=== PATIENT | female | born 1950 | race Caucasian/White ===

== ENCOUNTER → 2017-03-09 16:35 | Outpatient (CLI) | payer MEDICARE, OTHER ==
[2015-04-15 12:58] VITALS: BMI 36.4
[~2017-03-09 16:35] MED LIST: CELEBREX200 MG PO; CYCLOBENZAPRINE10 MG PO; GLUCOPHAGE850 MG PO; KLONOPIN1 MG PO; LIPITOR10 MG PO; NEXIUM40 MG PO; PAXIL30 MG PO; PLAVIX75 MG PO; SEROQUEL XR200 MG PO; THEREMS-M1 TAB PO; TRILIPIX135 MG PO; ZOCOR40 MG PO
== END | disposition home or self-care (01) ==
LOC: D.MAMMO 14:15
DX: Z12.31 Encounter for screening mammogram for malignant neoplasm of breast (principal)

== ENCOUNTER → 2017-04-21 22:30 | Outpatient (CLI) | payer MEDICARE, OTHER ==
[2015-04-15 12:58] VITALS: BMI 36.4
== END | disposition home or self-care (01) ==
LOC: D.MAMMO 09:00
DX: R92.2 Inconclusive mammogram (principal)

== ENCOUNTER 2017-09-07 08:27 | Outpatient (CLI) | payer MEDICARE, OTHER ==
--- NOTE | ~2017-09-07 | HEMODYNAMI ---
PATIENT:MARK VERONICA MEDICAL RECORD: [id number] : 50 LOCATION:[facility] ADMISSION DATE: 09/07/17 Generatedon:09/07/20179:58 Patient name: MARK VERONICA Patient #: [id number] SSN : : 1950 Date of study: 09/07/2017 Page: Of Hemodynamic Procedure Report Patient Data Patient Demographics Procedure consent was obtained First Name: MARK Gender: Female Last Name: GLENYS : 1950 Middle Initial: J Age: 67 year(s) Patient #: [id number] Race: Additional ID: [id number] Contact details [address]: [address] [place] [address] [address] State: [place] City: [place] Zip code: [address] Past Medical History Allergies: No known allergies Admission Admission Data Admission Date: 09/07/2017 Admission Time: 8:27 Procedure Procedure Types Cath Procedure Diagnostic Procedure LHC LHC w/Coronaries PCI Procedure Coronary Stent Initial PTCA Additional Miscellaneous Procedures Moderate Sedation up to 15 minutes Peripheral Cath Diagnostic Procedure Cath Peripheral Four Vessel Arteriogram Procedure Description Procedure Date Procedure Date: 09/07/2017 Procedure Start Time: 9:37 Procedure End Time: 9:54 Procedure Staff Name Function Roro Walker RT Scrub Scot Estrella RN Nurse Davin Valerio MD Performing Physician Patsy Cotto RT Monitor Indication Angina Procedure Data Cath Procedure Fluoroscopy Diagnostic fluoroscopy Total fluoroscopy Time: 3.6 time: 3.6 min min Diagnostic fluoroscopy Total fluoroscopy dose: 974 dose: 974 mGy mGy Contrast Material Contrast Material Type Amount (ml) Isovue 300 115 Entry Location Entry Primary Successful Side Size Upsize Upsize Entry Closure Succes sful Closure Location (Fr) 1 (Fr) 2 (Fr) Remarks Device Remarks Femoral Right 5 Fr 6 Fr Exoseal artery Short Estimated blood loss: 10 ml Diagnostic catheters Device Type Used For End Catheter Placement Cordis 5Fr Pigtail Procedure Catheter (MP) Cordis 5Fr JL 4.0 Procedure Catheter (MP) Cordis 5Fr 3DRC Catheter Procedure (MP) Procedure Complications No complications Procedure Medications Medication Administration Route Dosage Oxygen NC 2 l/min Heparin Flush Bag added to field 2 bags (1000units/500ml NS) 0.9% NaCl I.V. 100 ml/hr Fentanyl I.V. 50 mcg Versed I.V. 1 mg Fentanyl I.V. 50 mcg Versed I.V. 1 mg Heparin Bolus I.V. 4000 units Integrilin (Bolus I.V. 9 ml 2mg/ml) Integrilin (Bolus wasted 1 ml 2mg/ml) Plavix P.O. 600 mg Hemodynamics Rest Heart Rate: 73 (bpm) Pressure Samples Time Site Value (mmHg) Purpose Heart Use Rate(bpm) 9:39 LV 100/14,14 Snapshot 80 Snapshots Pre Cath Intra NCS Post Cath Vital Signs Time Heart Resp SPO2 NIBP (mmHg) Rhythm Pain Sedation Rate (ipm) (%) Status Level (bpm) 9:24:32 72 16 96 137/67(102) NSR 0 (11) 10(A) , No pain 9:28:46 74 18 95 132/72(99) NSR 0 (11) 10(A) , No pain 9:33:02 77 18 95 122/73(100) NSR 0 (11) 10(A) , No pain 9:37:20 76 17 95 138/61(85) NSR 0 (11) 10(A) , No pain 9:41:36 82 19 93 133/67(101) NSR 0 (11) 9(A) , No pain 9:45:52 86 18 96 153/78(110) NSR 0 (11) 9(A) , No pain 9:50:13 88 17 96 148/73(93) NSR 0 (11) 9(A) , No pain 9:54:35 85 17 96 160/77(114) NSR 0 (11) 9(A) , No pain Medications Time Medication Route Dose Verified Delivered Reason Notes Effectiveness by by 9:30:11 Oxygen NC 2 Davin Ellison Per physician l/min Teodoro Estrella RN 9:30:36 Heparin Flush added 2 Davin Ellison used for Bag to bags Teodoro Estrella service or work dispatcher chief (1000units/500ml field NS) 9:30:52 0.9% NaCl I.V. 100 Davin Ellison Per physician ml/hr Teodoro Estrella RN 9:35:25 Fentanyl I.V. 50 Davin Scot for sedation mcg Teodoro Estrella RN 9:37:13 Versed I.V. 1 mg Davin Cadety for sedation Teodoro Estrella RN 9:47:07 Fentanyl I.V. 50 Davin Cadety for sedation mcg Teodoro Estrella RN 9:47:11 Versed I.V. 1 mg Davin Ellison for sedation Teodoro Estrella RN 9:47:21 Heparin Bolus I.V. 4000 Davin Ellison for units Teodoro Estrella RN anticoagulation 9:47:33 Integrilin I.V. 9 ml Davin Ellison for (Bolus 2mg/ml) Teodoro Estrella RN antiplatelet therapy 9:47:40 Integrilin wasted 1 ml Davin Ellison for (Bolus 2mg/ml) Teodoro Estrella RN antiplatelet therapy 9:55:19 Plavix P.O. 600 Davin Ellison for mg Teodoro Estrella RN antiplatelet therapy Procedure Log Time Note 9:00:46 Scot Estrella RN sent for patient. Start room use. 9:10:24 Diagnostic Cath Status : Elective 9:10:42 Indication : Angina 9:10:52 Time tracking: Regular hours 9:10:57 Plan of Care:Hemodynamics will remain stable., Cardiac rhythm will remain stable., Comfort level will be maintained., Respiratory function will remain adequate., Patient/ family verbilizes understanding of procedure., Procedure tolerated without complication., Recovers from procedure without complications.. 9:11:02 Patient received from Pre/Post Procedure Room to CCL 2 Alert and oriented. Tansferred to table in Supine position. 9:11:04 Correct patient and procedure confirmed by team. 9:11:04 Warm blankets applied, and margot hugger turned on for patient comfort. 9:11:05 Signed procedure consent form obtained from patient. 9:11:07 ECG and BP/O2 sat monitors applied to patient. 9:23:22 Vital chart was started 9:23:23 Baseline sample Acquired. 9:23:28 Rhythm: sinus rhythm 9:23:29 Full Disclosure recording started 9:23:37 H&P Date Dictated: 09/06/2017 Within 30 days and on chart., H&P Addendum completed by physician on day of procedure. (MUST COMPLETE FOR ALL OUTPATIENTS). 9:24:16 Pre-procedure instructions explained to patient. 9:24:18 Family in waiting room. 9:24:20 Patient NPO since Midnight. 9:24:28 Patient allergic to No known allergies 9:24:32 Is the patient allergic to Iodine/contrast media? No. 9:24:34 Was the patient premedicated? Yes 9:24:37 Is patient on blood thinner?Yes 9:24:50 ACC The patient was administered the following blood thiners within the last 24 hours: Eliquis 9:24:55 Patient diabetic? No. 9:24:57 Snore? Yes 9:24:58 Sleep apnea? Yes 9:25:10 Dentures? Yes in tight 9:25:15 Patient pain scale 0/10 ?. 9:25:31 IV patent on arrival in left forearm with 0.9% NaCl at KVO. 9:30:11 Oxygen 2 l/min NC was administered by Scot Estrella RN; Per physician; 9:30:36 Heparin Flush Bag (1000units/500ml NS) 2 bags added to field was administered by Scot Estrella RN; used for procedure; 9:30:52 0.9% NaCl 100 ml/hr I.V. was administered by Scot Estrella RN; Per physician; 9:34:59 Physician arrived 9:35:00 --------ALL STOP TIME OUT------ 9:35:11 Final Timeout: patient, procedure, and site verified with staff and physician. All members of the team are in agreement. 9:35:13 Right groin site verified by team. 9:35:18 Sedation plan: IV Moderate Sedation Versed, Fentanyl 9:35:25 Fentanyl 50 mcg I.V. was administered by Scot Estrella RN; for sedation; 9:36:16 Lab results completed and on chart. 9:36:20 Right groin area was prepped with chlora-prep and draped in sterile fashion 9:36:21 Sharps counted by scrub and verified by R.N. 9:36:21 Alarms reviewed by R. N. 9:36:53 Procedure started. 9:37:02 Local anesthetic to right femoral artery with Lidocaine 2% by Davin Valerio MD.INITIAL ACCESS ONLY 9:37:13 Versed 1 mg I.V. was administered by Scot Estrella RN; for sedation; 9:37:36 Use device set Femoral Dx 9:37:37 Acist Syringe opened to sterile field. 9:37:38 Medline Cath Pack opened to sterile field. 9:37:38 Bag Decanter opened to sterile field. 9:37:39 St Uzair 260cm J .035 wire opened to sterile field. 9:37:39 Terumo 5Fr Rodman Sheath opened to sterile field. 9:37:40 Acist Hand Control opened to sterile field. 9:37:41 Tegaderm 4 x 4 opened to sterile field. 9:37:41 Diagnostic Infinity 5Fr Multipack catheter opened to sterile field. 9:37:41 Acist Manifold opened to sterile field. 9:37:53 A 5 Fr sheath was inserted into the Right Femoral artery 9:38:02 Zero performed for pressure channel P1 9:39:22 A Cordis 5Fr Pigtail Catheter (MP) was advanced over the wire and used for Procedure. 9:39:29 LV angiography performed. 9:40:04 EF : 60 % 9:40:09 Catheter removed. 9:40:16 A Cordis 5Fr JL 4.0 Catheter (MP) was advanced over the wire and used for Procedure. 9:40:19 LCA angiography performed. 9:41:33 Catheter removed. 9:41:56 A Cordis 5Fr 3DRC Catheter (MP) was advanced over the wire and used for Procedure. 9:42:42 RCA angiography performed. 9:43:09 Left carotid angiography performed. 9:44:17 Right carotid angiography performed. 9:44:38 Catheter removed. 9:45:15 Velazquez Whisper J 300cm 0.014 guide wire opened to sterile field. 9:45:16 Sonian BasixCompak Inflation Kit opened to sterile field. 9:45:16 Cordis 6FR XBLAD 3.5 guide catheter opened to sterile field. 9:45:17 Terumo 6Fr Rodman Sheath opened to sterile field. 9:45:28 Sheath upsized to a 6 Fr Short. 9:45:38 6 Fr XBLAD 3.5 guide catheter was inserted over the wire 9:45:43 whisper wire advanced. 9:47:07 Fentanyl 50 mcg I.V. was administered by Scot Estrella RN; for sedation; 9:47:11 Versed 1 mg I.V. was administered by Scot Estrella RN; for sedation; 9:47:16 Wire advanced across lesion. 9:47:21 Heparin Bolus 4000 units I.V. was administered by Scot Estrella RN; for anticoagulation; 9:47:33 Integrilin (Bolus 2mg/ml) 9 ml I.V. was administered by Scot Estrella RN; for antiplatelet therapy; 9:47:40 Integrilin (Bolus 2mg/ml) 1 ml wasted was administered by Scot Estrella RN; for antiplatelet therapy; 9:48:36 Inflation Number: 1 A Informativetronic Integrity 2.5 X 8 stent was prepped and advanced across the 1st Diag. The stent was deployed at 11 DENICE for 0:10 (min:sec). 9:48:46 Wire redirected to LAD. 9:48:52 Stent balloon re-inserted over wire. 9:49:41 Inflation number: 1 The stent balloon was then re-inflated across the Mid LAD to 15 DENICE for 0:10 (min:sec). 9:49:49 Stent catheter was removed intact over wire. 9:49:50 Wire removed. 9:49:51 Guide catheter removed. 9:50:22 Cordis 6Fr Exoseal opened to sterile field. 9:50:40 Sheath removed intact; hemostasis achieved with Exoseal to the Right Femoral artery. 9:50:44 Procedure ended.(Physican Out) 9:50:55 Fluoroscopy time 03.60 minutes. 9:51:00 Fluoroscopy dose: 974 mGy 9:51:00 Flurop Dose total: 974 9:51:04 Contrast amount:Isovue 300 115ml. 9:51:06 Sharps counted by scrub and verified by R.N. 9:51:10 Insertion/operative site no bleeding no hematoma. 9:51:15 Post right femoral artery:stable 9:51:18 Post Procedure Pulses reassessed and unchanged 9:51:22 Post-procedure physical assessment completed. ASA score P 2 - A patient with mild systemic disease as per Davin Valerio MD. 9:51:27 Post procedure rhythm: unchanged. 9:51:29 Estimated blood loss: 10 ml 9:51:30 Post procedure instruction explained to patient.Patient verbalizes understanding. 9:53:04 Procedure type changed to Cath procedure, Diagnostic procedure, LHC, LHC w/Coronaries, PCI procedure, Coronary Stent Initial, PTCA Additional, Miscellaneous Procedures, Moderate Sedation up to 15 minutes, Peripheral Cath Diagnostic Procedure, Cath Peripheral, Four Vessel Arteriogram 9:53:06 Procedure and supply charges have been captured, reviewed, submitted and are correct. 9:54:03 Procedure Complication : No complications 9:54:05 Vital chart was stopped 9:54:06 See physician's report for complete and final results. 9:54:07 Report given to Pre/Post Procedure Room. 9:54:11 Patient transfered to Pre/Post Procedure Room with Stretcher. 9:54:13 Full Disclosure recording stopped 9:54:13 Procedure ended. 9:54:17 End room use (Document Last) 9:54:28 ACC-PCI Only Patient was given prescriptions, or instructed by Davin Valerio MD to start/continue the following medications upon discharge: Plavix 9:55:19 Plavix 600 mg P.O. was administered by cSot Estrella RN; for antiplatelet therapy; Intervention Summary Intervention Notes Time ActionType Lesion and Equipment Action# Pressure Duration Attributes Used 9:48:36 Place stent 1st Diag Medtronic 1 11 00:10 Integrity 2.5 X 8 stent 9:49:41 Reinflate Mid LAD Medtronic 1 15 00:10 stent Integrity balloon 2.5 X 8 stent Device Usage Item Name Manufacture Quantity Catalog Hospital Part Current Minimal L ot# / Number Charge Number Stock Stock Serial# Code Acist Acist 1 [id number] [id number] [id number] 20 Syringe Medical [employer] Inc Bag Microtek 1 [id number] 99935 154078 5 DecValderm Medical Inc. Medline Cardinal 1 [id number] 363851 86685 619003 5 Cath Pack Eko USA Terumo 5Fr Terumo 1 [id number] 012527 122386 183616 [address] Uz[address] St Uzair 1 [id number] 349806 166589 902788 30 260cm J .035 wire Acist Hand Acist 1 10618 983433 505173 006710 5 Control Medical Systems Inc Acist Acist 1 68965 254267 059481 015249 5 ComVibe Medical Systems Inc Diagnostic Cardinal 1 [id number] 942062 16454 311662 30 Infinity Health 5Fr Multipack catheter Tegaderm 4 3M 1 [id number] 451471 766217 973670 5 x 4 Cordis 5Fr Cardinal 1 823753 5 Pigtail Health Catheter (MP) Cordis 5Fr Cardinal 1 318696 5 JL 4.0 Health Catheter (MP) Cordis 5Fr Cardinal 1 712712 5 3DRC Health Catheter (MP) Velazquez Velazquez 1 [id number] 693315 729844 247597 5 Whisper J Vascular 300cm 0.014 guide wire Cordis 6FR Cardinal 1 [id number] 070406 341307 698464 10 XBLAD 3.5 Health guide catheter [facility] 1 [id number] 658874 903486 210874 15 OVGuide Medical Inflation Kit Terumo 6Fr Terumo 1 [id number] 470924 953085 514531 40 Rodman Sheath Medtronic Medtronic 1 [id number] 408036 374063 1 0 [id number] Integrity 2.5 X 8 stent Cordis 6Fr Cardinal 1 [id number] 403501 235341 706572 10 [facility] Eko USA Signature Audit [place] Stage Time Signature Unsigned Intra-Procedure 09/07/2017 Patsy Cotto 9:58:49 AM RT(R) Signatures Monitor : Patsy Cotto Signature : RT Date : Time : [id number] [place] [address]
[2017-09-07] MEDS ORDERED: LOPID600 MG PO (08:43)
[2017-09-07] MEDS ORDERED: BETAPACE 80 MG80 MG PO (08:43)
[2017-09-07] MEDS ORDERED: ZANTAC150 MG PO (08:44)
[2017-09-07] MEDS ORDERED: SEROQUEL200 MG PO (08:44)
[2017-09-07] MEDS ORDERED: ELIQUIS5 MG PO (08:45)
[2017-09-07 08:49] VITALS: BP 137/71; BMI 35.2
[2017-09-07 09:05] LABS: BASOPHILS 0.7 % (0-2); EOSINOPHILS 3.2 % (0-7); HEMATOCRIT 42.2 % (36.0-48.0); HEMOGLOBIN 14.3 g/dL (12-16); IMMATURE GRANULOCYTES 0.2 % (0-5); LYMPHOCYTES 35.3 % (15-50); MCH 29.9 pg (26.0-34.0); MCHC 33.9 g/dL (31.0-37.0); MCV 88.3 fL (80.0-100.0); MONOCYTES 7.3 % (2-11); NEUTROPHILS 53.3 % (40-80); PLATELET COUNT 255 10x3/uL (130-400); RBC 4.78 10x6/uL (4.00-5.40); RDW 13.4 % (11.5-14.5); WBC 9.6 10x3/uL (4.8-10.8)
[2017-09-07 09:19] LABS: CALC OSMOLALITY 272 mosm/kg (275-300); CALCIUM 9.1 mg/dL (8.5-10.1); CARBON DIOXIDE 25.7 mmol/L (21.0-32.0); CHLORIDE - SERUM 102 mmol/L (98-107); CREATININE - SERUM 0.8 mg/dL (0.6-1.3); GLUCOSE 131 mg/dL (74-106); SODIUM 136 mmol/L (136-145); UREA NITROGEN 9 mg/dL (7-18); eGFR NON AFRICAN AMERICAN 76 mL/min (90-120)
[2017-09-07] MEDS ORDERED: PLAVIX75 MG PO (10:14)
--- NOTE | 2017-09-07 10:20 | NUR ---
2L NC, NO RESP DISTRESS NOTED. RIGHT GROIN 6F EXOSEAL CDI, NO BLEEDIGN OR HEMATOMA NOTED. NO C/O NAUSEA OR CHEST PAIN. VSS. CALL LIGHT WITHIN REACH.
--- NOTE | 2017-09-07 10:50 | NUR ---
SANDWICH TRAY AND DRINK GIVEN. NO C/O NAUSEA OR PAIN. RIGHT GROIN 6F EXOSEAL CDI, NO BLEEDING OR HEMATOMA NOTED. 2L NC, NO RESP DISTRESS. VSS. FAMILY AT BEDSIDE, CALL LIGHT WITHIN REACH.
--- NOTE | 2017-09-07 11:05 | NUR ---
RESTING QUIETLY WITH EYES CLOSED. 2L NC, NO RESP DISTRESS. RIGHT GROIN 6F EXOSEAL CDI, NO BLEEDING OR HEMATOMA NOTED. NO C/O PAIN OR NAUSEA AT THIS TIME. VSS. WILL CONTINUE TO MONITOR.
--- NOTE | 2017-09-07 11:30 | NUR ---
RESTING QUEITLY WITH VSS NO DISTRESS NOTED
--- NOTE | 2017-09-07 12:29 | NUR ---
6 FR EXOSEAL R/GROIN CDI NO BLEEDING NO HEMATOMA NOTED. CHEST PAIN DENIED WITH VSS
--- NOTE | 2017-09-07 13:25 | NUR ---
HOB ELEVATED 30 DEGREES. RIGHT GROIN 6F EXOSEAL CDI, NO BLEEDING OR HEMATOMA NOTED.
--- NOTE | 2017-09-07 13:44 | NUR ---
LEFT WRIST PIV D/C'D WITH CATHETER INTACT, BAND AID TO SITE. UP TO BEDSIDE TO GET DRESSED.
--- NOTE | 2017-09-07 13:51 | NUR ---
DISCHARGE INSTRUCTIONS GIVEN, VERBALIZED UNDERSTANDING. UP TO RESTROOM TO VOID.
--- NOTE | 2017-09-07 14:01 | NUR ---
TAKEN OUT VIA WHEELCHAIR BY CATH CARGO ROUTER. LEFT FACILITY WITH FAMILY MEMBER AND ALL PERSONAL BELONGINGS.
--- NOTE | 2017-09-23 16:56 | OP ---
PATIENT NAME: MARK VERONICA MEDICAL RECORD: [id number] :50 LOCATION:D.CAT ADMISSION DATE: SURGEON: INGRDI WALDEN MD DATE OF OPERATION: 09/07/2017 PROCEDURE: Four-vessel carotid and vertebral angiography. INDICATIONS: Recurrent syncope, carotid vascular disease. DESCRIPTION OF PROCEDURE: After informed consent was obtained and after detailed explanation of risks, benefits as well as alternative therapies, the patient elected to proceed with angiogram. The right femoral area had a preexisting sheath from cardiac intervention. All catheters exchanged through this sheath. FINDINGS: There was subselection of each subclavian as well as the left carotid right side. The common internal and external carotids have mild plaquing, none greater than 20%, no flow-limiting stenosis. Vertebral artery has no significant disease. LEFT SYSTEM: The common internal and external carotids have mild plaquing, none greater than 20%, no flow-limiting stenosis. Vertebral artery has no significant disease. OVERALL IMPRESSION: No significant carotid vascular disease is present. Syncope is not secondary to carotid vascular insufficiency. TRANSINT:[id number] Voice Confirmation ID: [id number] DOCUMENT ID: [id number] INGRID WALDEN MD at 1656 CC: [id number] DICTATION DATE: 09/07/17 0957 SR. PAYROLL MANAGER: 09/07/17 1031 DEP CLI 09/07/17 [facility] [address] [place] [address]
--- NOTE | 2017-09-23 16:56 | OP ---
PATIENT NAME: MARK VERONICA MEDICAL RECORD: [id number] :50 LOCATION:D.CAT ADMISSION DATE: SURGEON: INGRID WALDEN MD DATE OF OPERATION: 09/07/2017 PROCEDURES: 1. PTCA stent to LAD diagonal 2. PTCA to LAD. 3. Left heart catheterization. 4. Selective coronary angiography. 5. Left ventriculogram. INDICATION: Angina and coronary artery disease. PROCEDURE IN DETAIL: After informed consent was obtained and after detailed explanation of risks, benefits as well as alternative therapies, the patient elected to proceed with angiogram and angioplasty. The right femoral area was prepped and draped in normal sterile fashion. The right femoral artery was cannulated via modified Seldinger technique with placement of 6-Slovenian sheath. All catheters exchanged through this sheath. FINDINGS: The left ventriculogram was performed in standard 30-degree GONZALEZ view, reveals good cardiac wall motion throughout all segments. Overall ejection fraction estimated 60%. SELECTIVE CORONARY ANGIOGRAPHY: 1. Left main is with no significant angiographic disease. 2. Left anterior descending has previously placed stents in the LAD and LAD diagonal. The diagonal has 75% stenosis after the previously placed stents. The LAD has 70% in-stent restenosis. 3. The left circumflex has moderate irregularities, but no flow-limiting stenosis. 4. Right coronary has a large PDA that has 80% stenosis at the ostium. PTCA STENT OF THE LAD DIAGONAL: The stent used was a 2.5 x 8 mm Integrity stent. The stent balloon was used for the LAD at each inflation at 15 atmospheres. The result was 0% residual throughout. OVERALL IMPRESSION: Successful percutaneous transluminal coronary angioplasty stent of the left anterior descending diagonal and percutaneous transluminal coronary angioplasty of the left anterior descending going from 70% to 75% initial stenosis to 0% residual stenosis. TRANSINT:[id number] Voice Confirmation ID: [id number] DOCUMENT ID: [id number] INGRID WALDEN MD at 1656 CC: [id number] DICTATION DATE: 09/07/17 0957 FOUNDRY HAND: 09/07/17 1031 DEP CLI 09/07/17 [place] [address]
== END 2017-09-07 14:00 | disposition home or self-care (01) ==
LOC: D.CATH 08:27
PROVIDERS: Internal Medicine Interventional Cardiology
DX: I25.119 Atherosclerotic heart disease of native coronary artery with unspecified angina pectoris (principal); T82.855A Stenosis of coronary artery stent, initial encounter; R55 Syncope and collapse; Z01.812 Encounter for preprocedural laboratory examination

== ENCOUNTER 2017-09-09 08:06 | Outpatient (CLI) | payer MEDICARE, OTHER ==
--- NOTE | ~2017-09-09 | HEMODYNAMI ---
PATIENT:MARK VERONICA MEDICAL RECORD: [id number] : 50 LOCATION:DJenniCAT ADMISSION DATE: 09/09/17 Generatedon:09/09/201711:35 Patient name: MARK VERONICA Patient #: [id number] SSN : : 1950 Date of study: 09/09/2017 Page: Of Hemodynamic Procedure Report Patient Data Patient Demographics Procedure consent was obtained First Name: MARK Gender: Female Last Name: GLENYS : 1950 Middle Initial: J Age: 67 year(s) Patient #: [id number] Race: Additional ID: [id number] Contact details [address]: [address] [place] [address] [place] State: [place] City: [place] Zip code: [address] Past Medical History Allergies: No allergy information Admission Admission Data Admission Date: 09/09/2017 Admission Time: 8:06 Procedure Procedure Types Cath Procedure PCI Procedure Coronary Stent Initial Miscellaneous Procedures Moderate Sedation up to 15 minutes Procedure Description Procedure Date Procedure Date: 09/09/2017 Procedure Start Time: 11:24 Procedure End Time: 11:32 Procedure Staff Name Function Davin Valerio MD Performing Physician Roro Walker RT Scrub Scot Estrella RN Nurse Patsy Cotto RT Monitor Procedure Data Cath Procedure Fluoroscopy Diagnostic fluoroscopy Total fluoroscopy Time: 0 time: 0 min min Diagnostic fluoroscopy Total fluoroscopy dose: 1.7 dose: 1.7 mGy mGy Contrast Material Contrast Material Type Amount (ml) Isovue 300 43 Entry Location Entry Primary Successful Side Size Upsize Upsize Entry Closure Succes sful Closure Location (Fr) 1 (Fr) 2 (Fr) Remarks Device Remarks Femoral Left 6 Fr Exoseal artery Short Estimated blood loss: 10 ml Procedure Complications No complications Procedure Medications Medication Administration Route Dosage Oxygen NC 2 l/min Heparin Flush Bag added to field 2 bags (1000units/500ml NS) 0.9% NaCl I.V. 100 ml/hr Fentanyl I.V. 50 mcg Versed I.V. 1 mg Heparin Bolus I.V. 4000 units Fentanyl I.V. 50 mcg Versed I.V. 1 mg Hemodynamics Rest Heart Rate: 65 (bpm) Snapshots Pre Cath Intra NCS Post Cath Vital Signs Time Heart Resp SPO2 etCO2 NIBP (mmHg) Rhythm Pain Sedation Rate (ipm) (%) (mmHg) Status Level (bpm) 11:19:21 63 19 98 0 151/75(113) NSR 0 (11) 10(A) , No pain 11:23:55 64 17 95 0 148/72(116) NSR 0 (11) 10(A) , No pain 11:28:21 72 16 95 0 130/74(112) NSR 0 (11) 9(A) , No pain 11:32:48 71 16 96 0 134/72(100) NSR 0 (11) 9(A) , No pain Medications Time Medication Route Dose Verified Delivered Reason Notes Effectiveness by by 11:19:11 Oxygen NC 2 Davin Cadety Per physician l/min Teodoro Estrella RN 11:19:20 Heparin Flush added 2 Davin Cadety used for Bag to bags Teodoro Estrella RN procedure (1000units/500ml field NS) 11:19:30 0.9% NaCl I.V. 100 Davin Scot Per physician ml/hr Teodoro Estrella RN 11:23:16 Fentanyl I.V. 50 Davin Scot for sedation mcg Teodoro Estrella RN 11:23:23 Versed I.V. 1 mg Davin Scot for sedation Teodoro Estrella RN 11:26:26 Heparin Bolus I.V. 4000 Davin Ellison for units Teodoro Estrella RN anticoagulation 11:26:54 Fentanyl I.V. 50 Davin Scot for sedation mcg Teodoro Estrella RN 11:26:58 Versed I.V. 1 mg Davin Scot for sedation Teodoro Estrella RN Procedure Log Time Note 10:50:49 Time tracking: Regular hours 10:58:45 Diagnostic Cath status Elective 10:58:47 Roro Walker RT(R) sent for patient. Start room use. 10:58:55 Plan of Care:Hemodynamics will remain stable., Cardiac rhythm will remain stable., Comfort level will be maintained., Respiratory function will remain adequate., Patient/ family verbilizes understanding of procedure., Procedure tolerated without complication., Recovers from procedure without complications.. 11:06:04 Patient received from Pre/Post Procedure Room to CCL 3 Alert and oriented. Tansferred to table in Supine position. 11:06:05 Warm blankets applied, and margot hugger turned on for patient comfort. 11:06:06 Correct patient and procedure confirmed by team. 11:06:07 Signed procedure consent form obtained from patient. 11:06:12 ECG and BP/O2 sat monitors applied to patient. 11:14:14 H&P Date Dictated: 09/09/2017 Within 30 days and on chart., H&P Addendu m completed by physician on day of procedure. (MUST COMPLETE FOR ALL OUTPATIENTS). 11:14:16 Pre-procedure instructions explained to patient. 11:14:17 Family in waiting room. 11:14:19 Patient NPO since Dinner. 11:14:33 Patient allergic to No allergy information 11:14:36 Was the patient premedicated? Yes 11:14:38 Is patient on blood thinner?Yes 11:14:41 ACC The patient was administered the following blood thiners within the last 24 hours: ACCPlavix 11:14:59 Patient diabetic? No. 11:15:03 Snore? No 11:15:04 Sleep apnea? No 11:15:20 Dentures? Yes in tight 11:15:27 Patient pain scale 0/10 ?. 11:15:32 IV patent on arrival in left hand with 0.9% NaCl at KVO. 11:15:39 Lab results completed and on chart. 11:15:43 Left groin area was prepped with chlora-prep and draped in sterile fashion 11:15:44 Alarms reviewed by R. N. 11:15:45 Sharps counted by scrub and verified by R.N. 11:15:47 - 11:15:49 Physician paged 11:17:52 Vital chart was started 11:19:11 Oxygen 2 l/min NC was administered by Scot Estrella RN; Per physician; 11:19:20 Heparin Flush Bag (1000units/500ml NS) 2 bags added to field was administered by Scot Estrella RN; used for procedure; 11:19:30 0.9% NaCl 100 ml/hr I.V. was administered by Scot Estrella RN; Per physician; 11:19:39 Baseline sample Acquired. 11:19:44 Full Disclosure recording started 11:20:25 Medtronic Launcher 6Fr AR 2.0 guide catheter opened to sterile field. 11:20:39 Use device set Femoral PCI 11:20:40 Acist Syringe opened to sterile field. 11:20:41 Acist Hand Control opened to sterile field. 11:20:41 Bag Decanter opened to sterile field. 11:20:41 Medline Cath Pack opened to sterile field. 11:20:42 Terumo 6Fr Bainbridge Sheath opened to sterile field. 11:20:43 St Uzair 260cm J .035 wire opened to sterile field. 11:20:43 Merit BasixCompak Inflation Kit opened to sterile field. 11:20:44 Acist Manifold opened to sterile field. 11:20:44 Tegaderm 4 x 4 opened to sterile field. 11:20:56 Velazquez Whisper J 300cm 0.014 guide wire opened to sterile field. 11:21:48 Physician arrived 11:21:49 --------ALL STOP TIME OUT------ 11:21:50 Final Timeout: patient, procedure, and site verified with staff and physician. All members of the team are in agreement. 11:21:52 Left groin site verified by team. 11:21:57 Sedation plan: IV Moderate Sedation Versed, Fentanyl 11:23:16 Fentanyl 50 mcg I.V. was administered by Scot Estrella RN; for sedation ; 11::23 Versed 1 mg I.V. was administered by Scot Estrella RN; for sedation; 11::55 Zero performed for pressure channel P1 11:24:04 Procedure started. 11:24:16 Local anesthetic to left femerol artery with Lidocaine 2% by Davin Valerio MD.INITIAL ACCESS ONLY 11:24:27 A 6 Fr Short sheath was inserted into the Left Femoral artery 11:24:48 6 Fr AR2 guide catheter was inserted over the wire 11::55 angiogram of left illiac because wire would not pass. 11::00 whisper wire advanced. 11:: Heparin Bolus 4000 units I.V. was administered by Scot Estrella RN; for anticoagulation; 11::45 Wire advanced across lesion. 11::54 Fentanyl 50 mcg I.V. was administered by Scot Estrella RN; for sedation ; ::58 Versed 1 mg I.V. was administered by Scot Estrella RN; for sedation; 11::17 Inflation Number: 1 A IAMINTOITtronic Integrity 2.75 X 12 stent was prepped and advanced across the R PDA. The stent was deployed at 13 DENICE for 0:07 (min:sec). 11::53 Stent catheter was removed intact over wire. 11::54 Wire removed. 11::55 Guide catheter removed. 11:30:01 Cordis 6Fr Exoseal opened to sterile field. 11:30:37 Contrast amount:Isovue 300 43ml. 11::57 Sheath removed intact; hemostasis achieved with Exoseal to the Left Femoral artery. 11:31:03 Procedure ended.(Physican Out) 11:31:16 Fluoroscopy time 00.00 minutes. ::28 Flurop Dose total: 1.7 11:: Fluoroscopy dose: 1.7 mGy 11::45 Insertion/operative site no bleeding no hematoma. 11:31:49 Post-op/insertion site Left Femoral artery dressed using a 4 x 4 and Tegaderm. 11:31:53 Post left femerol artery:stable 11::55 Post Procedure Pulses reassessed and unchanged 11::58 Post-procedure physical assessment completed. ASA score P 2 - A patient with mild systemic disease as per Davin Valerio MD. 11:32:03 Post procedure rhythm: unchanged. 11:32:05 Estimated blood loss: 10 ml 11:32:07 Post procedure instruction explained to patient.Patient verbalizes understanding. 11:32:23 Procedure and supply charges have been captured, reviewed, submitted an d are correct. 11:32:28 Procedure Complication : No complications 11:32:31 Vital chart was stopped 11:32:31 See physician's report for complete and final results. 11:32:37 Report given to Pre/Post Procedure Room. 11:32:46 Patient transfered to Pre/Post Procedure Room with Stretcher. 11:32:49 Procedure ended. 11:32:49 Full Disclosure recording stopped 11:34:47 End room use (Document Last) Intervention Summary Intervention Notes Time ActionType Lesion and Equipment Action# Pressure Duration Attributes Used 11:29:17 Place stent R PDA Medtronic 1 13 00:07 Integrity 2.75 X 12 stent Device Usage Item Name Manufacture Quantity Catalog Hospital Part Current Minimal L ot# / Number Charge Number Stock Stock Serial# Code Medtronic Medtronic 1 [id number] [id number] 1 Launcher 6Fr AR 2.0 guide catheter Acist Acist 1 67437 201906 216631 032959 20 Syringe Medical Systems Inc Acist Hand Acist 1 48535 500621 801943 945584 5 Cloud Imperium Games [employer] Inc Bag Microtek 1 2002S 501799 93422 795006 5 DecLlesiant Medical Inc. Medline Cardinal 1 [id number] 410008 49175 094265 5 Cath Pack Health Terumo 6Fr Terumo 1 [id number] 328067 492266 868399 [address] Uzair 1 398344 952005 109538 853935 30 260cm J .035 wire Merit Merit 1 ST7007 837611 793042 230979 15 BasixEvents Core Medical Inflation Kit Acist Acist 1 78773 603860 272264 309403 5 Manifold Medical Systems Inc Tegaderm 4 3M 1 1626W 225349 652028 485613 5 x 4 Velazquez Velazquez 1 [id number] 034344 798200 677587 5 Whisper J Vascular 300cm 0.014 guide wire Medtronic Medtronic 1 [id number] 572819 831513 1 0 [id number] Integrity 2.75 X 12 stent Cordis 6Fr Cardinal 1 EX600 437983 556614 419159 10 [email or web address] Signature Audit [place] Stage Time Signature Unsigned Intra-Procedure 09/09/2017 Patsy Cotto 11:35:22 AM RT(R) Signatures Monitor : Patsy Cotto Signature : RT Date : Time : [facility] [address] [place] [address]
[~2017-09-09 08:06] MED LIST changes: +BETAPACE 80 MG80 MG PO; +ELIQUIS5 MG PO; +LOPID600 MG PO; +SEROQUEL200 MG PO; +ZANTAC150 MG PO
[2017-09-09 09:06] LABS: BASOPHILS 0.5 % (0-2); EOSINOPHILS 4.4 % (0-7); HEMATOCRIT 40.6 % (36.0-48.0); HEMOGLOBIN 13.8 g/dL (12-16); IMMATURE GRANULOCYTES 0.3 % (0-5); LYMPHOCYTES 26.5 % (15-50); MCH 29.6 pg (26.0-34.0); MCV 87.1 fL (80.0-100.0); MEAN PLATELET VOLUME 9.9 fL (7.4-10.4); MONOCYTES 7.3 % (2-11); PLATELET COUNT 218 10x3/uL (130-400); RBC 4.66 10x6/uL (4.00-5.40); RDW 13.4 % (11.5-14.5); WBC 10.6 10x3/uL (4.8-10.8)
[2017-09-09 09:08] VITALS: BP 150/80; BMI 35.2
[2017-09-09 09:12] LABS: ANION GAP 14.1 mmol/L (8-16); CALCIUM 9.2 mg/dL (8.5-10.1); CARBON DIOXIDE 25.9 mmol/L (21.0-32.0)
--- NOTE | 2017-09-09 13:32 | NUR ---
1200 PATIENT LYING FLAT, ROOM AIR W NO DISTRESS. NSR RATE 71 WNO C/O CHEST PAIN. PULSES PALP X 4. L GROIN 6F EXOSEAL C/D/I W NO HEMATOMA OR BLEEDING. 1230 RESTING WITH EYES CLOSED. ALL VITALS WNL. L GROIN REMAINS C/D/I. DENIES NEEDS AT THIS TIME. 1330 L GROIN REMAINS C/D/I. FAMILY AT BEDSIDE.
--- NOTE | 2017-09-09 13:54 | NUR ---
RESTING QUIETLY WITH EYES CLOSED. L/GROIN CDI NO BLEEDING NO HEMATOMA NOTED. VSS WITH FAMILY AT SIDE
--- NOTE | 2017-09-09 14:25 | NUR ---
L/GROIN CDI NO DISTRESS NOTED VSS WILL MONITOR
--- NOTE | 2017-09-09 14:47 | NUR ---
REPOSITIONED TO SITTING WITH HOB UP 30 DEGREES CHEST PAIN IS DENIED. 6 FR EXOSEAL L/GROIN REMAINS CDI NO BLEEDING NO HEMATOMA NOTED.
--- NOTE | 2017-09-09 15:18 | NUR ---
PIV REMOVED WITH DRESSING APPLIED. L/GROIN CDI NO BLEEDING NOTED. CHEST PAIN IS DENIED. PATIENT UP TO GET DRESSED FOR DISCHARGE HOME NO DISTRESS NOTED
--- NOTE | 2017-09-09 15:23 | NUR ---
WHEELED OUT VIA WHEELCHAIR BY CATH TEAM.
--- NOTE | 2017-09-23 16:56 | HP ---
PATIENT: MARK VERONICA MEDICAL RECORD: [id number] ACCOUNT: [id number] LOCATION:SHENG : 50 ADMISSION DATE: 09/09/17 HISTORY AND PHYSICAL EXAMINATION ADMITTING DIAGNOSES: 1. Angina. 2. Coronary artery disease. 3. Recent percutaneous transluminal coronary angioplasty stent of the left anterior descending with concomitant disease of the right coronary artery. 4. Hypertension. 5. Hyperlipidemia. HISTORY OF PRESENT ILLNESS: Mrs. Veronica presents with anginal symptomatology, found to have 2-vessel coronary artery disease of the LAD and RCA, underwent successful PTCA stent of the LAD, is now brought back for PTCA stent of the RCA. PHYSICAL EXAMINATION: GENERAL APPEARANCE: Well-nourished, well-developed, appears stated age. Level of distress, comfortable. PSYCHIATRIC: Mental status, alert, normal affect. Orientation, oriented to time, place and person. EYES: Lids and conjunctiva, noninjected. No discharge, no pallor. ENT: Lips, teeth, gums, normal dentition. Oropharynx, no cyanosis, no pallor. NECK: Carotid arteries, bilateral normal upstroke, no bruits, no thrills. JUGULAR VEINS: No jugular venous pressure or distention. CERVICAL LYMPH NODES: Nontender, nonenlarged. THYROID: Not enlarged. Nontender. No nodules. LUNGS: Respiratory effort, unlabored. CHEST: Normal curvature. No thoracic deformity. No chest wall tenderness. Percussion, resonant. Auscultation, clear. No wheezes, no rales, no rhonchi. CARDIOVASCULAR: Precordial exam, nondisplaced. No heaves or pericardial thrills. Rate and rhythm, regular. Heart sounds, normal S1, normal S2. No S3, no gallop, no rub. Systolic murmur, not heard. Diastolic murmur, not heard. EXTREMITIES: No cyanosis, no edema. Peripheral pulses, full and equal in all extremities, except as noted. No bruits appreciated. ABDOMEN: Soft, nondistended. Normal aorta. No bruit. Nontender. No masses. Liver, nontender, no hepatomegaly. Spleen, nontender, no splenomegaly. MUSCULOSKELETAL: No joint tenderness. No joint swelling. No erythema. NEUROLOGICAL: Normal gait, normal strength, normal tone. SKIN: Warm and dry. REVIEW OF SYSTEMS: The patient reports easy bruising but reports no swollen glands. The patient reports no fever, no night sweats, no significant weight gain, no significant weight loss. No significant exercise tolerance. The patient reports no dry eyes, no irritation, no vision change. Patient reports no difficulty hearing and no ear pain. Patient reports no frequent nose bleeds or nose and sinus problems. Patient reports on arm pain on exertion. No shortness of breath while lying down. No history of heart murmur. Patient reports no cough, no wheezing or coughing up blood. Patient reports no abdominal pain, no vomiting. Normal appetite. No diarrhea and not vomiting blood. No nausea and no constipation. Patient reports no incontinence. No difficulty urinating. No hematuria. No increased frequency. Patient reports no muscle aches. No weakness, no arthralgias, no back pain. No swelling of the HISTORY AND PHYSICAL [id number] MARK VERONICA extremities. Patient reports no abnormal mole, no jaundice, no rashes. Reports no loss of consciousness. No weakness and no numbness. No seizures, dizziness, or headaches. The patient reports no depression, no sleep disturbance, feeling safe in a relationship and no alcohol abuse. Patient reports on fatigue. Reports no runny nose or sinus pressure. No itching, no hives, and no frequent sneezing. OVERALL IMPRESSION: Anginal symptomatology with significant disease of the right coronary artery. We will proceed with percutaneous transluminal coronary angioplasty stent of the right coronary artery. TRANSINT:[id number] Voice Confirmation ID: [id number] DOCUMENT ID: [id number] INGRID WALDEN MD at 1656 CC: [id number] DICTATION DATE: 09/09/1733 MOLDING FITTER: 09/09/17 1006 DEP CLI 09/09/17 [facility] [address] [place] [id number]
--- NOTE | 2017-09-23 16:56 | OP ---
PATIENT NAME: MARK VERONICA MEDICAL RECORD: [id number] :50 LOCATION:D.CAT ADMISSION DATE: SURGEON: INGRID WALDEN MD DATE OF OPERATION: 09/09/2017 PROCEDURES: 1. PTCA stent RCA. 2. Selective coronary angiography. INDICATION: Angina and coronary artery disease. PROCEDURE IN DETAIL: After informed consent was obtained and after detailed explanation of risks, benefits as well as alternative therapies, the patient elected to proceed with angiogram and angioplasty. The right femoral area was prepped and draped in normal sterile fashion. The right femoral artery was cannulated via modified Seldinger technique with placement of 6-Luxembourgish sheath. All catheters exchanged through this sheath. FINDINGS: The right coronary has 85% stenosis at the PDA ostium. This was addressed with a 2.75 x 12 mm Integrity stent. Result was 0% residual stenosis. OVERALL IMPRESSION: Successful percutaneous transluminal coronary angioplasty stent of the right coronary artery going from 85% initial stenosis to 0% residual. TRANSINT:[id number] Voice Confirmation ID: [id number] DOCUMENT ID: [id number] INGRID WALDNE MD at 1656 CC: [id number] DICTATION DATE: 09/09/17 1134 DROP SHIPMENT CLERK: 09/09/17 1352 DEP CLI 09/09/[address] [address]
== END 2017-09-09 15:24 | disposition home or self-care (01) ==
LOC: D.CATH 08:06
PROVIDERS: Internal Medicine Interventional Cardiology
DX: I25.119 Atherosclerotic heart disease of native coronary artery with unspecified angina pectoris (principal); Z95.5 Presence of coronary angioplasty implant and graft; I10 Essential (primary) hypertension; E78.5 Hyperlipidemia, unspecified; Z01.812 Encounter for preprocedural laboratory examination

== ENCOUNTER → 2017-10-04 14:13 | Outpatient (CLI) | payer MEDICARE, OTHER ==
[2017-09-09 09:08] VITALS: BMI 35.2
== END | disposition home or self-care (01) ==
LOC: D.MAMMO 13:00
DX: R92.8 Other abnormal and inconclusive findings on diagnostic imaging of breast (principal)

== ENCOUNTER 2019-02-24 15:40 | Inpatient (IN) | payer MEDICARE, OTHER ==
[~2019-02-24] VITALS: Ht 167.6 cm; Wt 81.6 kg
[2019-02-24 16:21] LABS: BASOPHILS 0.9 % (0-2); EOSINOPHILS 4.3 % (0-7); HEMATOCRIT 41.8 % (36.0-48.0); HEMOGLOBIN 13.8 g/dL (12-16); IMMATURE GRANULOCYTES 0.3 % (0-5); LYMPHOCYTES 26.4 % (15-50); MCV 90.9 fL (80.0-100.0); MEAN PLATELET VOLUME 11.9 fL (7.4-10.4); NEUTROPHILS 63.1 % (40-80); PLATELET COUNT 227 10x3/uL (130-400); RDW 15.6 % (11.5-14.5)
[2019-02-24 16:31] LABS: ALBUMIN 2.9 g/dL (3.4-5.0); ALKALINE PHOSPHATASE 681 U/L (46-116); ALT (SGPT) 268 U/L (10-68); BILIRUBIN - TOTAL 16.49 mg/dL (0.2-1.3); CHLORIDE - SERUM 92 mmol/L (98-107); CREATININE - SERUM 0.8 mg/dL (0.6-1.3); POTASSIUM - SERUM 3.3 mmol/L (3.5-5.1); SODIUM 128 mmol/L (136-145); UREA NITROGEN 11 mg/dL (7-18); eGFR NON AFRICAN AMERICAN 75 mL/min (90-120)
[2019-02-24 16:33] LABS: APPEARANCE CLEAR (CLEAR); BILIRUBIN 2+ (NEGATIVE); COLOR YELLOW (YELLOW); GLUCOSE 1000 mg/dL (NEGATIVE); KETONE NEGATIVE (NEGATIVE); NITRITE NEGATIVE (NEGATIVE); PROTEIN NEGATIVE (NEGATIVE); UROBILINOGEN NORMAL (NORMAL)
[2019-02-24 16:40] LABS: CALC OSMOLALITY 280 mosm/kg (275-300); GLUCOSE 544 mg/dL (74-106)
[2019-02-24 18:46] LABS: AMYLASE - SERUM 10 U/L (25-115); LIPASE 296 U/L (73-393)
--- NOTE | 2019-02-24 19:53 | NUR ---
REC'D PATIENT FROM ER WITH DAUGHTER AT BEDSIDE. NO S/S OF DISTRESS. BED IN LOWEST POSITION AND CALL LIGHT WITHIN REACH. ENCOURAGED THE PATIENT TO CALL IF SHE HAS NEEDS.
[2019-02-24 20:14] VITALS: BP 154/60
[2019-02-24] MEDS ORDERED: ISOSORBIDE MONO30 M1 PO (20:15)
[2019-02-24 20:20] VITALS: BMI 29.1
[2019-02-25 00:51] VITALS: BP 129/48
[2019-02-25] MEDS ORDERED: NYAMYC60 GM TP (03:48)
[2019-02-25] MEDS ORDERED: NYSTATIN15 GM TOPICAL (03:49)
[2019-02-25] MEDS ORDERED: PROTONIX40 MG PO (03:50)
[2019-02-25] MEDS ORDERED: RANITIDINE HCL150 M1 PO (03:51)
[2019-02-25 05:17] VITALS: BP 156/53
--- NOTE | 2019-02-25 06:25 | NUR ---
PATIENT'S BLOOD GLUCOSE 267 THIS MORNING. I OFFERED TO PAGE THE DOCTOR TO FIND OUT ABOUT SLIDING SCALE. PATIENT STATED SHE DOES NOT WANT TO TAKE INSULIN BECAUSE SHE CAN'T EAT OR DRINK AND SHE WILL WAIT UNTIL AFTER HER PROCEDURE.
[2019-02-25 06:43] LABS: BASOPHILS 0.7 % (0-2); EOSINOPHILS 4.1 % (0-7); HEMATOCRIT 37.9 % (36.0-48.0); HEMOGLOBIN 12.8 g/dL (12-16); IMMATURE GRANULOCYTES 0.2 % (0-5); LYMPHOCYTES 33.2 % (15-50); MCH 30.2 pg (26.0-34.0); MCHC 33.8 g/dL (31.0-37.0); MCV 89.4 fL (80.0-100.0); MEAN PLATELET VOLUME 12.6 fL (7.4-10.4); MONOCYTES 5.5 % (2-11); NEUTROPHILS 56.3 % (40-80); PLATELET COUNT 251 10x3/uL (130-400); RBC 4.24 10x6/uL (4.00-5.40)
[2019-02-25 07:00] LABS: INR 1.24 (0.85-1.17)
[2019-02-25 07:04] LABS: ALBUMIN 2.5 g/dL (3.4-5.0); ALKALINE PHOSPHATASE 602 U/L (46-116); ALT (SGPT) 240 U/L (10-68); BILIRUBIN - TOTAL 14.66 mg/dL (0.2-1.3); CALCIUM 8.4 mg/dL (8.5-10.1); CARBON DIOXIDE 23.4 mmol/L (21.0-32.0); CHLORIDE - SERUM 97 mmol/L (98-107); MAGNESIUM - SERUM 1.7 mg/dL (1.8-2.4); PHOSPHOROUS 1.8 mg/dL (2.5-4.9); PROTEIN - SERUM 6.4 g/dL (6.4-8.2); SODIUM 132 mmol/L (136-145); UREA NITROGEN 9 mg/dL (7-18)
[2019-02-25 07:05] LABS: CALC OSMOLALITY 271 mosm/kg (275-300); CREATININE - SERUM 0.5 mg/dL (0.6-1.3); GLUCOSE 251 mg/dL (74-106); eGFR NON AFRICAN AMERICAN > 90 mL/min (90-120)
[2019-02-25 07:06] LABS: POTASSIUM - SERUM 2.6 mmol/L (3.5-5.1)
[2019-02-25 07:39] VITALS: BP 161/81
--- NOTE | 2019-02-25 09:12 | NUR ---
PT TAKEN OFF TELEMTRY AND SL LEFT HAND IV. PT MRI PAPERWORK FILLED OUT. FAMILY AT BEDSIDE. PT TAKEN FOR MRI VIA WC.
--- NOTE | 2019-02-25 13:44 | MORECARE ---
CASE MANAGEMENT DISCHARGE SUMMARY PATIENT: MARK YEAGER UNIT: [id number] ADM DATE: 02/24/19 AGE: 69 : 50 SEX: F ROOM/BED: D.1204 AUTHOR: CLARITZA LOMAX PHYSICIAN: REFERRING PHYSICIAN: JUAN MANUEL CUELLAR MD DATE OF SERVICE: 02/25/19 Discharge Plan Patient Name: MARK YEAGER Facility: [facility]:[place] : 1950 Planned Disposition: Home Anticipated Discharge Date: 02/27/19 Discharge Date: Expected LOS: 3 Initial Reviewer: [email or web address] Initial Review Date: 02/24/2019 Generated: 02/25/19 2:44 pm DCPIA - Discharge Planning Initial Assessment Updated by [email or web address]: Regine Mcintyre on 02/25/19 1:44 pm * Is the patient Alert and Oriented? Yes * How many steps to enter\exit or inside your home? none * PCP Dr. Bajwa * [facility] * Preadmission Environment Home with Family * ADLs Independent * Equipment Cane Rolling Walker Wheelchair * List name and contact numbers for known caregivers / representatives who currently or will assist patient after discharge: Ken Yeager - spouse - [phone] * Verbal permission to speak to the caregivers and representatives has been obtained from the patient. Yes * Please name any agencies selected above. Her has a private pd caregiver that assists her as needed also. * Additional services required to return to the preadmission environment? No * Can the patient safely return to the preadmission environment? Yes * Has this patient been hospitalized within the prior 30 days at any hospital? No Patient Name: MARK YEAGER Page [id number] at 1344 All edits/amendments must be made on the electronic document DICTATION DATE: 02/25/19 1343 PIT RECORDER: AVERY 02/25/19 1343 RPT#: [id number] DC DATE: STATUS: ADM IN [facility] [address] [place] [address] END OF REPORT
--- NOTE | 2019-02-25 13:50 | MORECARE ---
CASE MANAGEMENT DISCHARGE SUMMARY PATIENT: MARK YEAGER UNIT: [id number] ADM DATE: 02/24/19 AGE: 69 : 50 SEX: F ROOM/BED: D.1204 AUTHOR: MONIE,DOC PHYSICIAN: REFERRING PHYSICIAN: JUAN MANUEL CUELLAR MD DATE OF SERVICE: 02/25/19 Discharge Plan Patient Name: MARK YEAGER Facility: [facility]:[place] : 1950 Planned Disposition: Home Anticipated Discharge Date: 02/27/19 Discharge Date: Expected LOS: 3 Initial Reviewer: [email or web address] Initial Review Date: 02/24/2019 Generated: 02/25/19 2:50 pm DCP- Discharge Planning Updated by [email or web address]: Regine Mcintyre on 02/25/19 12:[address] Patient Name: MARK YEAGER Admission Status: ER Accout number: [id number] Admission Date: 02-24-2019 : 1950 Admission Diagnosis: Attending: JUAN MANUEL CUELLAR Current LOS: 1 Anticipated DC Date: 02-27-2019 Planned Disposition: Home Primary Insurance: MEDICARE A & B Discharge Planning Comments: CM met with patient to complete initial dc planning assessment. CM educated patient on the CM role and verbal consent given by patient to complete assessment. Patient lives at home with her who she helps take care of. She reports she is mostly independent in her care but does need assistance at times. At discharge patient plans to return home and feels this is a safe discharge. CM discussed availability of home health, rehab services, and medical equipment. She is not sure at this time what she is going to need. She stated it depends on what she finds out about having cancer or not. Patient denied known discharge needs at this time. CM will continue to follow and will assist as needed with dc plans/needs. Hearing Therapy Teacher: Regine Mcintyre RN, [facility] DCPIA - Discharge Planning Initial Assessment Updated by [id number]: Regine Mcintyre on 02/25/19 1:44 pm * Is the patient Alert and Oriented? Yes * How many steps to enter\exit or inside your home? none * PCP Dr. Bajwa * Pharmacy [facility] on [address] * Preadmission Environment Home with Family * ADLs Independent * Equipment Cane Rolling Walker Wheelchair * List name and contact numbers for known caregivers / representatives who currently or will assist patient after discharge: Ken Yeager - spouse - [phone] * Verbal permission to speak to the caregivers and representatives has been obtained from the patient. Yes * Please name any agencies selected above. Her has a private pd caregiver that assists her as needed also. * Additional services required to return to the preadmission environment? No * Can the patient safely return to the preadmission environment? Yes * Has this patient been hospitalized within the prior 30 days at any hospital? No Last DP export: 02/25/19 12:44 p Patient Name: MARK YEAGER Page [id number] at 1350 All edits/amendments must be made on the electronic document DICTATION DATE: 02/25/19 1350 SLEEP TECH: AVERY 02/25/19 1350 RPT#: [id number] DC DATE: STATUS: ADM IN [facility] [address] [place] [address] END OF REPORT
--- NOTE | 2019-02-25 15:00 | NUR ---
PT AOX4 RESP EVEN AND NONLABORED PT DENIES NEEDS AT THIS TIME CONTINUE POC
[2019-02-25 20:00] VITALS: BP 107/51
--- NOTE | 2019-02-25 21:12 | NUR ---
PATIENT RESTING IN BED WITH NO S/S OF DISTRESS AND DENIES NEEDS AT THIS TIME. ADMINISTERED MEDS PER ORDERS AND COMPLETED ASSESSMENT. BED IN LOWEST POSITION AND CALL LIGHT WITHIN REACH. ENCOURAGED THE PATIENT TO CALL IF SHE HAS NEEDS. WILL CONTINUE TO MONITOR.
[2019-02-26 00:10] VITALS: BP 128/62
[2019-02-26 04:00] VITALS: BP 124/74
[2019-02-26 07:35] LABS: ALBUMIN 2.6 g/dL (3.4-5.0); ALKALINE PHOSPHATASE 685 U/L (46-116); ALT (SGPT) 272 U/L (10-68); BILIRUBIN - TOTAL 15.66 mg/dL (0.2-1.3); CALC OSMOLALITY 273 mosm/kg (275-300); CALCIUM 8.9 mg/dL (8.5-10.1); CARBON DIOXIDE 24.2 mmol/L (21.0-32.0); CHLORIDE - SERUM 99 mmol/L (98-107); CREATININE - SERUM 0.6 mg/dL (0.6-1.3); GLUCOSE 265 mg/dL (74-106); PROTEIN - SERUM 6.5 g/dL (6.4-8.2); SODIUM 133 mmol/L (136-145); UREA NITROGEN 9 mg/dL (7-18); eGFR NON AFRICAN AMERICAN > 90 mL/min (90-120)
[2019-02-26 07:38] LABS: POTASSIUM - SERUM 2.8 mmol/L (3.5-5.1)
[2019-02-26 07:39] LABS: BASOPHILS 0.6 % (0-2); HEMATOCRIT 38.7 % (36.0-48.0); HEMOGLOBIN 12.9 g/dL (12-16); IMMATURE GRANULOCYTES 0.3 % (0-5); LYMPHOCYTES 33.1 % (15-50); MCH 29.7 pg (26.0-34.0); MCHC 33.3 g/dL (31.0-37.0); MEAN PLATELET VOLUME 12.1 fL (7.4-10.4); MONOCYTES 6.7 % (2-11); NEUTROPHILS 55.3 % (40-80); PLATELET COUNT 263 10x3/uL (130-400); RBC 4.35 10x6/uL (4.00-5.40); RDW 15.2 % (11.5-14.5); WBC 8.6 10x3/uL (4.8-10.8)
[2019-02-26 08:42] VITALS: BP 127/66
--- NOTE | 2019-02-26 10:22 | NUR ---
AM MEDS GIVEN WITH A SIP OF WATER. ALSO GAVE 40MEQ OF K. LT HAND IV PATENT. PT A/O X4, RESP EVEN AND NONLABORED ON RA. PT DENIES ANY NEEDS AT THIS TIME. CALL LIGHT IN REACH, FAMILY AT BEDSIDE, NAD NOTED, WILL CONTINUE TO MONITOR.
--- NOTE | 2019-02-26 11:33 | NUR ---
BLOOD SUGAR OF 199, NO COVERAGE DUE TO PT BEING NPO. PT DENIES ANY NEEDS AT THIS TIME. FAMILY AT BEDSIDE, CALL LIGHT IN REACH, NAD NOTED, WILL CONTINUE TO MONITOR.
[2019-02-26 12:00] VITALS: BP 136/49
[2019-02-26 13:18] VITALS: BMI 29.0
--- NOTE | 2019-02-26 14:05 | NUR ---
PT TRANSFERED TO GI LAB AT THIS TIME.
[2019-02-26 16:18] VITALS: BP 145/52
--- NOTE | 2019-02-26 16:18 | NUR ---
RECEIVED PT TO ROOM 1204 BACK GI LAB, VITAL SIGNS STABLE, PLACED PT ON FREQUENT VITAL SIGNS. PT A/O X4, RESP EVEN AND NONLABORED ON RA. BLOOD SUGAR OF 262, 10 UNITS OF HUMULIN GIVEN PER S/S. PT DENIES ANY NEEDS AT THIS TIME. CALL LIGHT IN REACH, FEMALE FRIEND AT BEDSIDE, NAD NOTED, WILL CONTINUE TO MONITOR.
--- NOTE | 2019-02-26 19:26 | NUR ---
PATIENT RESTING IN BED WITH NO S/S OF DISTRESS AND DENIES NEEDS AT THIS TIME. BED IN LOWEST POSITION AND CALL LIGHT WITHIN REACH. ENCOURAGED THE PATIENT TO CALL IF SHE HAS NEEDS. WILL CONTINUE TO MONITOR.
[2019-02-26 21:02] VITALS: BP 135/60
[2019-02-27] VITALS: BP 159/75
[2019-02-27 04:00] VITALS: BP 111/72
[2019-02-27 06:10] LABS: BASOPHILS 0.7 % (0-2); EOSINOPHILS 4.5 % (0-7); HEMATOCRIT 38.3 % (36.0-48.0); HEMOGLOBIN 12.8 g/dL (12-16); IMMATURE GRANULOCYTES 0.2 % (0-5); LYMPHOCYTES 34.2 % (15-50); MCH 29.7 pg (26.0-34.0); MCHC 33.4 g/dL (31.0-37.0); MCV 88.9 fL (80.0-100.0); MEAN PLATELET VOLUME 12.7 fL (7.4-10.4); MONOCYTES 4.8 % (2-11); NEUTROPHILS 55.6 % (40-80); PLATELET COUNT 278 10x3/uL (130-400); RBC 4.31 10x6/uL (4.00-5.40); RDW 15.6 % (11.5-14.5)
[2019-02-27 06:54] LABS: ALBUMIN 2.5 g/dL (3.4-5.0); ALKALINE PHOSPHATASE 661 U/L (46-116); ALT (SGPT) 235 U/L (10-68); AMYLASE - SERUM 80 U/L (25-115); BILIRUBIN - TOTAL 7.13 mg/dL (0.2-1.3); CALCIUM 8.9 mg/dL (8.5-10.1); CARBON DIOXIDE 23.8 mmol/L (21.0-32.0); CHLORIDE - SERUM 99 mmol/L (98-107); CREATININE - SERUM 0.6 mg/dL (0.6-1.3); LIPASE 1059 U/L (73-393); PROTEIN - SERUM 6.8 g/dL (6.4-8.2); SODIUM 135 mmol/L (136-145); UREA NITROGEN 8 mg/dL (7-18); eGFR NON AFRICAN AMERICAN > 90 mL/min (90-120)
[2019-02-27 07:14] LABS: CALC OSMOLALITY 273 mosm/kg (275-300); GLUCOSE 215 mg/dL (74-106)
--- NOTE | 2019-02-27 11:35 | NUR ---
BLOOD SUGAR OF 260 10UNITS OF INSULIN GIVEN PER S/S. PT DENIES ANY NEEDS AT THIS TIME. RESTING COMFORTABLY IN BED, FAMILY AT BEDSIDE, NAD NOTED, WILL CONTINUE TO MONITOR.
[2019-02-27 12:23] VITALS: BP 149/54
[2019-02-27 14:55] VITALS: Ht 167.6 cm; Wt 81.6 kg
[2019-02-27 20:00] VITALS: BP 125/52
--- NOTE | 2019-02-27 21:24 | NUR ---
AWAKE,ALERT.NO COMPLAITNS VOICED. RESP EVEN AND UNLABORED.NO DISTRESS NOTED. IV INFUSING TO LEFT HAND WITHOUT REDNESS OR EDEMA NOTED. ABD SOFT,NONDISTENDED COMPLAINS OF TENDERNESS TO RIGHT UPPER ABD. UP AD CHASE IN ROOM. CL IN REACH
--- NOTE | 2019-02-27 23:01 | NUR ---
I have reviewed this patient and I concur with the Shift Assessment completed by the Licensed Practical Nurse today this shift.
[2019-02-28] VITALS: BP 101/52
[2019-02-28 04:30] VITALS: BP 130/70
[2019-02-28 05:40] LABS: BASOPHILS 0.7 % (0-2); EOSINOPHILS 4.9 % (0-7); HEMATOCRIT 36.4 % (36.0-48.0); HEMOGLOBIN 12.6 g/dL (12-16); IMMATURE GRANULOCYTES 0.4 % (0-5); LYMPHOCYTES 38.1 % (15-50); MCHC 34.6 g/dL (31.0-37.0); MCV 89.7 fL (80.0-100.0); MEAN PLATELET VOLUME 12.3 fL (7.4-10.4); MONOCYTES 5.2 % (2-11); NEUTROPHILS 50.7 % (40-80); PLATELET COUNT 264 10x3/uL (130-400); RBC 4.06 10x6/uL (4.00-5.40); RDW 15.7 % (11.5-14.5); WBC 7.6 10x3/uL (4.8-10.8)
[2019-02-28 06:16] LABS: ALBUMIN 2.5 g/dL (3.4-5.0); ALKALINE PHOSPHATASE 532 U/L (46-116); BILIRUBIN - TOTAL 4.38 mg/dL (0.2-1.3); CALCIUM 8.8 mg/dL (8.5-10.1); CARBON DIOXIDE 22.9 mmol/L (21.0-32.0); CHLORIDE - SERUM 102 mmol/L (98-107); CREATININE - SERUM 0.7 mg/dL (0.6-1.3); LIPASE 479 U/L (73-393); POTASSIUM - SERUM 3.3 mmol/L (3.5-5.1); PROTEIN - SERUM 6.4 g/dL (6.4-8.2); SODIUM 135 mmol/L (136-145); UREA NITROGEN 8 mg/dL (7-18); eGFR NON AFRICAN AMERICAN 88 mL/min (90-120)
[2019-02-28 06:21] LABS: ALT (SGPT) 149 U/L (10-68); AMYLASE - SERUM 37 U/L (25-115); CALC OSMOLALITY 285 mosm/kg (275-300)
[2019-02-28 06:23] LABS: GLUCOSE 427 mg/dL (74-106)
--- NOTE | 2019-02-28 08:34 | NUR ---
AM MEDS GIVEN AT THIS TIME. PT HAD NO TROUBLE SWALLOWING PILLS. PT EATING BREAKFAST. A/O X4, RESP EVEN AND NONLABORED ON RA, DENIES ANY NEEDS AT THIS TIME. CALL LIGHT IN REACH, NAD NOTED, WILL CONTINUE TO MONITOR.
[2019-02-28 09:25] VITALS: BP 172/72
[2019-02-28] MEDS ORDERED: GLUCOPHAGE1000 MG PO (12:16)
[2019-02-28] MEDS ORDERED: HUMALOG 30100 UNITS/ SC (12:17)
[2019-02-28 12:46] VITALS: BP 155/71
--- NOTE | 2019-02-28 14:43 | NUR ---
PROVIDED VERBAL AND WRITTEN DISCHARGE TEACHING TO PT AND DAUGHTER AT BEDSIDE. BOTH VERBALIZED UNDERSTANDING REGARDING TEACHING. PRESCRIPTIONS GIVEN TO PT. PT LEFT UNIT VIA WHEELCHAIR, WITH ALL BELONGINGS, ACCOMPANIED BY DAUGHTER, NAD NOTED.
--- NOTE | 2019-02-28 16:45 | MORECARE ---
CASE MANAGEMENT DISCHARGE SUMMARY PATIENT: MARK YEAGER UNIT: [id number] ADM DATE: 02/24/19 AGE: 69 : 50 SEX: F ROOM/BED: D.1204 AUTHOR: MONIEDOC PHYSICIAN: REFERRING PHYSICIAN: JUAN MANUEL CUELLAR MD DATE OF SERVICE: 02/28/19 Discharge Plan Patient Name: MARK YEAGER Facility: [facility]:[place] : 1950 Planned Disposition: Home Anticipated Discharge Date: 02/27/19 Discharge Date: 02/28/2019 Expected LOS: 3 Initial Reviewer: [email or web address] Initial Review Date: 02/24/2019 Generated: 02/28/19 5:45 pm Comments DCP- Discharge Planning Updated by [email or web address]: Phylicia Lynn on 02/28/19 3:[address] late entry for 14:25 Patient Name: MARK YEAGER Encounter No: [id number] : 1950 Primary Insurance: MEDICARE A & B Anticipated DC Date: 02-27-2019 Planned Disposition: Home External Planned Provider: : DCP follow-up note: Patient and family in agreement with discharge plan. No changes to plan. CM explained and served DC IMM. Case management will follow and assist as needed. Phylicia Lynn DCP- Discharge Planning Updated by [id number]: Regine Mcintyre on 02/25/19 12:[address] Patient Name: MARK YEAGER Admission Status: ER Accout number: [id number] Admission Date: 02-24-2019 : 1950 Admission Diagnosis: Attending: JUAN MANUEL CUELLAR Current LOS: 1 Anticipated DC Date: 02-27-2019 Planned Disposition: Home Primary Insurance: MEDICARE A & B Discharge Planning Comments: CM met with patient to complete initial dc planning assessment. CM educated patient on the CM role and verbal consent given by patient to complete assessment. Patient lives at home with her who she helps take care of. She reports she is mostly independent in her care but does need assistance at times. At discharge patient plans to return home and feels this is a safe discharge. CM discussed availability of home health, rehab services, and medical equipment. She is not sure at this time what she is going to need. She stated it depends on what she finds out about having cancer or not. Patient denied known discharge needs at this time. CM will continue to follow and will assist as needed with dc plans/needs. Tram Inspector: Regine Mcintyre RN, [facility] DCPIA - Discharge Planning Initial Assessment Updated by [id number]: Regine Mcintyre on 02/25/19 1:44 pm * Is the patient Alert and Oriented? Yes * How many steps to enter\exit or inside your home? none * PCP Dr. Bajwa * Pharmacy [facility] [address] * Preadmission Environment Home with Family * ADLs Independent * Equipment Cane Rolling Walker Wheelchair * List name and contact numbers for known caregivers / representatives who currently or will assist patient after discharge: Ken Yeager - spouse - [phone] * Verbal permission to speak to the caregivers and representatives has been obtained from the patient. Yes * Please name any agencies selected above. Her has a private pd caregiver that assists her as needed also. * Additional services required to return to the preadmission environment? No * Can the patient safely return to the preadmission environment? Yes * Has this patient been hospitalized within the prior 30 days at any hospital? No Coverage Notice Reviewer: [id number] Be Lynn Notice Issued Date-Time: 02/28/2019 14:25 Notice Type: IM Discharge Notice Notice Delivered To: Patient Relationship to Patient: Self Fiber Picker Name: Delivery Method: HAND - Hand Delivered Lotus Days: Prior Verbal Notification: Recipient Understood Notice: Yes Recipient Signature: Yes Med Rec Note Co-signed by Attending: Coverage Notice Comment: Last DP export: 02/25/19 12:50 p Patient Name: MARK YEAGER Page [id number] at 1645 All edits/amendments must be made on the electronic document DICTATION DATE: 02/28/191644 DRY HOUSE OPERATOR: AVERY 02/28/191644 RPT#: [id number] DC DATE:02/28/19 STATUS: DIS IN [facility] [address] [place] [address] END OF REPORT
--- NOTE | 2019-03-01 06:49 | MORECARE ---
CASE MANAGEMENT DISCHARGE SUMMARY PATIENT: MARK YEAGER UNIT: [id number] ADM DATE: 02/24/19 AGE: 69 : 50 SEX: F ROOM/BED: D.1204 AUTHOR: MONIEDOC PHYSICIAN: REFERRING PHYSICIAN: JUAN MANUEL CUELLAR MD DATE OF SERVICE: 03/01/19 Discharge Plan Patient Name: MARK YEAGER Facility: [facility]:[place] : 1950 Planned Disposition: Home Anticipated Discharge Date: 02/27/19 Discharge Date: 02/28/2019 Expected LOS: 3 Initial Reviewer: [id number] Initial Review Date: 02/24/2019 Generated: 03/01/19 7:49 am Comments DCP- Discharge Planning Updated by [id number]: Phylicia Lynn on 02/28/19 3:[address] late entry for 14:25 Patient Name: MARK YEAGER Encounter No: [id number] : 1950 Primary Insurance: MEDICARE A & B Anticipated DC Date: 02-27-2019 Planned Disposition: Home External Planned Provider: : DCP follow-up note: Patient and family in agreement with discharge plan. No changes to plan. CM explained and served DC IMM. Case management will follow and assist as needed. Phylicia Lynn DCP- Discharge Planning Updated by [email or web address]: Regine Mcintyre on 02/25/19 12:[address] Patient Name: MARK YEAGER Admission Status: ER Accout number: [id number] Admission Date: 02-24-2019 : 1950 Admission Diagnosis: Attending: JUAN MANUEL CUELLAR Current LOS: 1 Anticipated DC Date: 02-27-2019 Planned Disposition: Home Primary Insurance: MEDICARE A & B Discharge Planning Comments: CM met with patient to complete initial dc planning assessment. CM educated patient on the CM role and verbal consent given by patient to complete assessment. Patient lives at home with her who she helps take care of. She reports she is mostly independent in her care but does need assistance at times. At discharge patient plans to return home and feels this is a safe discharge. CM discussed availability of home health, rehab services, and medical equipment. She is not sure at this time what she is going to need. She stated it depends on what she finds out about having cancer or not. Patient denied known discharge needs at this time. CM will continue to follow and will assist as needed with dc plans/needs. Weld Technician: Regine Mcintyre RN, [facility] DCPIA - Discharge Planning Initial Assessment Updated by [email or web address]: Regine Mcintyre on 02/25/19 1:44 pm * Is the patient Alert and Oriented? Yes * How many steps to enter\exit or inside your home? none * PCP Dr. Bajwa * Pharmacy [facility] [address] * Preadmission Environment Home with Family * ADLs Independent * Equipment Cane Rolling Walker Wheelchair * List name and contact numbers for known caregivers / representatives who currently or will assist patient after discharge: Ken Yeager - spouse - [phone] * Verbal permission to speak to the caregivers and representatives has been obtained from the patient. Yes * Please name any agencies selected above. Her has a private pd caregiver that assists her as needed also. * Additional services required to return to the preadmission environment? No * Can the patient safely return to the preadmission environment? Yes * Has this patient been hospitalized within the prior 30 days at any hospital? No Coverage Notice Reviewer: [email or web address] Be Lynn Notice Issued Date-Time: 02/28/2019 14:25 Notice Type: IM Discharge Notice Notice Delivered To: Patient Relationship to Patient: Self Sweater Designer Name: Delivery Method: HAND - Hand Delivered Lotus Days: Prior Verbal Notification: Recipient Understood Notice: Yes Recipient Signature: Yes Med Rec Note Co-signed by Attending: Coverage Notice Comment: Last DP export: 02/28/19 3:45 pm Patient Name: MARK EYAGER Page 15160 at 0649 All edits/amendments must be made on the electronic document DICTATION DATE: 03/01/19647 IRS AGENT: AVERY 03/01/19647 RPT#: [id number] DC DATE:02/28/19 STATUS: DIS IN [facility] [address] [place] [address] END OF REPORT
--- NOTE | 2019-03-01 09:10 | DS ---
PATIENT:MARK VERONICA :[birth year] MEDICAL RECORD: [id number] DISCHARGE SUMMARY ADMISSION DATE: 02/24/19 DISCHARGE DATE: 02/28/19 DATE OF ADMISSION: 02/24/2019 DATE OF DISCHARGE: 02/28/2019 ADMITTING DIAGNOSES: Painless jaundice with a pancreatic mass, weight loss, acute renal insufficiency, hypertension, type 2 diabetes, chronic obstructive pulmonary disease, obstructive sleep apnea, history of coronary artery disease, depression, anxiety, and tobacco abuse. DISCHARGE DIAGNOSES: Pancreatic mass, diagnosis pending; biliary obstruction status post ERCP, improved; elevated liver enzymes - improved, unintentional weight loss; acute kidney injury, resolved; type 2 diabetes; chronic obstructive pulmonary disease; obstructive sleep apnea; coronary artery disease; depression; anxiety; tobacco abuse. CONSULTING PHYSICIANS: GI with Dr. Sams, Dr. Proctor from general surgery. PROCEDURE: ERCP. HOSPITAL COURSE: This is a 69-year-old white female that presents with painless jaundice. Please note CT is performed in the ER, which reveals a biliary ductal dilatation with findings concerning for possible mass at the pancreatic head. 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 The patient was seen in consult by GI and ERCP was performed on 02/26/2019 with marked improvement of liver function tests, bilirubin dropped from 15 to 7 within 24 hours. She did have a small spike of her lipase up to a 1000 but that has now trended down. She has had no pain. She is tolerating a regular diet. Pathology from brushings is still pending. She would like to go home. The plan is going to be to let her go home today and follow up with her primary care physician in 5 days. Hopefully, we will have results of brushings at that time. If the brushings are diagnostic, then she can follow up with surgery and if brushings are negative, she will need to be set up for a CT-guided biopsy of the pancreatic mass. I have already discussed this with IR. She will have to be off anticoagulation 3 days prior and it will need to be done via posterior approach. She will also be scheduled with a surgery followup in 10-14 days regardless for followup as well as GI. Her blood sugar is a little elevated, has been running in the mid 200s, but has spiked prior to discharge. We will treat and if stable, she will be discharged later today. TRANSINT:[id number] Voice Confirmation ID: [id number] DOCUMENT ID: [id number] DISCHARGE SUMMARY REPORT [id number] MARK VERONICA MATTHEW DO at 0910 CC: [id number] DICTATION DATE: 02/28/19 121 ENROLLMENT MANAGEMENT COORDINATOR: 03/01/19 0154 DIS IN 02/28/19 [id number] [place] [address]
== END 2019-02-28 15:07 | disposition home or self-care (01) | DRG 374 ==
LOC: D.ER 15:40 → D.EDHOLD 18:52 → D.M3 18:52 → D.MS 19:27 → D.M3 19:40
PROVIDERS: Family Medicine; Internal Medicine Gastroenterology; ADMIT Internal Medicine Nephrology; ATTEND Internal Medicine Nephrology
PROC: 0F798DZ Dilation of Common Bile Duct with Intraluminal Device, Via Natural or Artificial Opening Endoscopic (ICD-10-PCS; 2019-02-26)
PROC: 0FD98ZX Extraction of Common Bile Duct, Via Natural or Artificial Opening Endoscopic, Diagnostic (ICD-10-PCS; principal; 2019-02-26 09:00)
DX: D37.8 Neoplasm of uncertain behavior of other specified digestive organs (principal); K83.1 Obstruction of bile duct; R17 Unspecified jaundice; N17.9 Acute kidney failure, unspecified; E87.1 Hypo-osmolality and hyponatremia; F17.213 Nicotine dependence, cigarettes, with withdrawal; K86.9 Disease of pancreas, unspecified; R63.4 Abnormal weight loss; Z68.29 Body mass index [BMI] 29.0-29.9, adult; E11.9 Type 2 diabetes mellitus without complications; E87.6 Hypokalemia; E83.42 Hypomagnesemia; I10 Essential (primary) hypertension; E78.5 Hyperlipidemia, unspecified; J44.9 Chronic obstructive pulmonary disease, unspecified; G47.33 Obstructive sleep apnea (adult) (pediatric); I25.10 Atherosclerotic heart disease of native coronary artery without angina pectoris; F32.9 Major depressive disorder, single episode, unspecified; F41.9 Anxiety disorder, unspecified

== ENCOUNTER 2019-03-08 07:05 | Outpatient (CLI) | payer MEDICARE, OTHER ==
[~2019-03-08] VITALS: Ht 167.6 cm; Wt 81.8 kg
[~2019-03-08 07:05] MED LIST changes: +GLUCOPHAGE1000 MG PO; +HUMALOG 30100 UNITS/ SC; +ISOSORBIDE MONO30 M1 PO; +NYAMYC60 GM TP; +NYSTATIN15 GM TOPICAL; +PROTONIX40 MG PO; +RANITIDINE HCL150 M1 PO
[2019-03-08 07:25] LABS: BASOPHILS 0.7 % (0-2); EOSINOPHILS 4.7 % (0-7); HEMATOCRIT 39.6 % (36.0-48.0); HEMOGLOBIN 13.6 g/dL (12-16); IMMATURE GRANULOCYTES 0.4 % (0-5); LYMPHOCYTES 33.8 % (15-50); MCH 29.9 pg (26.0-34.0); MCHC 34.3 g/dL (31.0-37.0); MEAN PLATELET VOLUME 10.9 fL (7.4-10.4); MONOCYTES 4.3 % (2-11); NEUTROPHILS 56.1 % (40-80); RBC 4.55 10x6/uL (4.00-5.40); RDW 14.2 % (11.5-14.5); WBC 10.4 10x3/uL (4.8-10.8)
[2019-03-08 07:27] LABS: PLATELET COUNT 346 10x3/uL (130-400)
[2019-03-08 07:47] LABS: APTT 31.1 SECONDS (22.8-39.4); INR 1.1 (0.85-1.17); PROTIME 13.7 SECONDS (11.6-15.0)
[2019-03-08 07:48] LABS: CALC OSMOLALITY 278 mosm/kg (275-300); CALCIUM 10.1 mg/dL (8.5-10.1); CARBON DIOXIDE 25.2 mmol/L (21.0-32.0); CHLORIDE - SERUM 97 mmol/L (98-107); CREATININE - SERUM 0.7 mg/dL (0.6-1.3); POTASSIUM - SERUM 3.3 mmol/L (3.5-5.1); SODIUM 135 mmol/L (136-145); UREA NITROGEN 13 mg/dL (7-18); eGFR NON AFRICAN AMERICAN 88 mL/min (90-120)
[2019-03-08 07:49] LABS: GLUCOSE 253 mg/dL (74-106)
[2019-03-08] MEDS ORDERED: OXYCONTIN10 MG PO (08:00)
[2019-03-08 08:21] VITALS: BP 132/64; Ht 167.6 cm; Wt 81.8 kg
== END 2019-03-08 14:15 | disposition home or self-care (01) ==
LOC: D.SP 07:05 → D.RAD 09:00 → D.SP 09:00
PROVIDERS: Radiology Vascular & Interventional Radiology; ATTEND Nurse Practitioner Family
DX: K86.9 Disease of pancreas, unspecified (principal); Z01.812 Encounter for preprocedural laboratory examination

== ENCOUNTER 2019-03-19 16:27 | Observation (INO) | payer MEDICARE, OTHER ==
[~2019-03-19] VITALS: Ht 167.6 cm; Wt 75.0 kg
[~2019-03-19 16:27] MED LIST changes: +OXYCONTIN10 MG PO
[2019-03-19 18:06] LABS: HEMATOCRIT 36.2 % (36.0-48.0); HEMOGLOBIN 12.6 g/dL (12-16); MCH 29.6 pg (26.0-34.0); MCHC 34.8 g/dL (31.0-37.0); MCV 85.2 fL (80.0-100.0); MEAN PLATELET VOLUME 11.8 fL (7.4-10.4); PLATELET COUNT 258 10x3/uL (130-400); RBC 4.25 10x6/uL (4.00-5.40); RDW 15.9 % (11.5-14.5); WBC 30.8 10x3/uL (4.8-10.8)
[2019-03-19 18:14] LABS: APTT 45.1 SECONDS (22.8-39.4); INR 1.97 (0.85-1.17); PROTIME 21.8 SECONDS (11.6-15.0)
[2019-03-19 18:25] VITALS: BP 130/84; BMI 26.7
[2019-03-19 18:29] LABS: ALBUMIN 2.1 g/dL (3.4-5.0); ANION GAP 30.3 mmol/L (8-16); BILIRUBIN - TOTAL 14.19 mg/dL (0.2-1.3); CALCIUM 8.4 mg/dL (8.5-10.1); CREATININE - SERUM 4.3 mg/dL (0.6-1.3); POTASSIUM - SERUM 4.3 mmol/L (3.5-5.1); PROTEIN - SERUM 6.6 g/dL (6.4-8.2)
[2019-03-19 18:54] LABS: EOSINOPHILS 2 % (0-7); LYMPHOCYTES 9 % (15-50); NEUTROPHILS 88 % (40-80); PLATELET ESTIMATE NORMAL
--- NOTE | 2019-03-19 19:30 | NUR ---
PATIENT RESTING IN BED WITH FAMILY AT BEDSIDE. PATIENT DENIES NEEDS AT THIS TIME. BED IN LOWEST POSITION AND CALL LIGHT WITHIN REACH. ENCOURAGED THE PATIENT AND FAMILY TO CALL IF THEY HAVE NEEDS. WILL CONTINUE TO MONITOR.
[2019-03-19 19:53] VITALS: Ht 167.6 cm; Wt 75.0 kg
[2019-03-19 20:00] VITALS: BP 101/54
--- NOTE | 2019-03-19 23:12 | NUR ---
SPOKE WITH [employer] CASE MANAGER IN REGARDS TO PATIENT ORDER FOR D5W WITH 3 AMP OF SODIUM BICARB
[2019-03-19 23:45] VITALS: BP 120/63
[2019-03-20 04:30] VITALS: BP 106/55
--- NOTE | 2019-03-20 05:01 | NUR ---
PATIENT HAS NOT VOIDED THIS SHIFT. BLADDER SCAN REVEALED 43ML.
--- NOTE | 2019-03-20 05:11 | NUR ---
ATTEMPTED TO CALL DR. CUELLAR IN REGARDS TO PATIENT NOT VOIDING. CALL WENT TO , WILL TRY AGAIN
--- NOTE | 2019-03-20 05:29 | NUR ---
NOTIFIED DR. CUELLAR THAT THE PATIENT HAS NOT VOIDED THIS SHIFT AND THAT A BLADDER SCAN REVEALED 48ML. I ALSO NOTIFIED HIM THAT THE PATIENT'S DAUGHTER INFORMED ME THAT THE BRIEF THE PATIENT WAS WEARING WAS PUT ON HER YESTERDAY MORNING AND SHE HAD NOT URINATED SINCE.
--- NOTE | 2019-03-20 07:15 | NUR ---
INITIAL ROUNDING, PATIENT SUPINE WITH HOB AT 45 DEGREES. THREE DAUGHTERS ARE AT BEDSIDE. DAUGHTER STATES SHE HAD ASKED FOR HOSPICE CONSULT YESTERDAY, TWICE. THEY ARE NOW REQUESTING TO SEE THE [facility]. DAUGHTERS REQUESTING HOSPICE AT HOME WITH [facility]. TEACHER INDUSTRIAL [employer]S NOTIFIED OF THE PATIENTS REQUESTS, AND [facility] NOTIFIED OF THE REQUEST.
[2019-03-20 07:30] LABS: HEMATOCRIT 30.8 % (36.0-48.0); HEMOGLOBIN 10.7 g/dL (12-16); MCH 29.1 pg (26.0-34.0); MCHC 34.7 g/dL (31.0-37.0); MCV 83.7 fL (80.0-100.0); MEAN PLATELET VOLUME 11.9 fL (7.4-10.4); PLATELET COUNT 253 10x3/uL (130-400); RBC 3.68 10x6/uL (4.00-5.40); RDW 15.7 % (11.5-14.5); WBC 23.9 10x3/uL (4.8-10.8)
[2019-03-20 07:32] LABS: INR 2.19 (0.85-1.17); PROTIME 23.7 SECONDS (11.6-15.0)
[2019-03-20 08:07] LABS: ALBUMIN 1.7 g/dL (3.4-5.0); ANION GAP 26.2 mmol/L (8-16); BILIRUBIN - TOTAL 9.1 mg/dL (0.2-1.3); CALCIUM 7.2 mg/dL (8.5-10.1); CREATININE - SERUM 4.6 mg/dL (0.6-1.3); POTASSIUM - SERUM 3.9 mmol/L (3.5-5.1); PROTEIN - SERUM 6.8 g/dL (6.4-8.2)
[2019-03-20 08:10] LABS: CARBON DIOXIDE 17.7 mmol/L (21.0-32.0)
--- NOTE | 2019-03-20 08:10 | NUR ---
CRITICAL AMOINIA LEVEL CALLED BY KAYE PERKINS NP FOR DR CUELLAR WAS CALLED AND NOTIFIED OF THIS WELL THE PATIENTS REQUEST FOR HOSPICE AND IV PAIN MEDICATION. NEW ORDERS RECIEVED,
[2019-03-20 08:25] VITALS: BP 100/55
[2019-03-20 09:19] LABS: EOSINOPHILS 1 % (0-7); LYMPHOCYTES 8 % (15-50); MONOCYTES 13 % (2-11); NEUTROPHILS 66 % (40-80); PLATELET ESTIMATE NORMAL; ROULEAUX OCC
--- NOTE | 2019-03-20 09:42 | MORECARE ---
CASE MANAGEMENT DISCHARGE SUMMARY PATIENT: MARK VERONICA UNIT: [id number] ADM DATE: 03/19/19 AGE: 69 : 50 SEX: F ROOM/BED: D.1208 AUTHOR: CLARITZA LOMAX PHYSICIAN: REFERRING PHYSICIAN: JUAN MANUEL CUELLAR MD DATE OF SERVICE: 03/20/19 Discharge Plan Patient Name: MARK VERONICA Facility: [facility]:[place] : 1950 Planned Disposition: Home with Hospice Anticipated Discharge Date: 03/20/19 Discharge Date: Expected LOS: 1 Initial Reviewer: [id number] Initial Review Date: 03/20/2019 Generated: 03/20/19 10:41 am External Providers External Provider: [facility] *(provides inpt [facility] Next Contact Date: Service Request Date: Service Type: Resolution: Reviewer: Comments: Patient Name: MARK VERONICA Page [phone] at 0942 All edits/amendments must be made on the electronic document DICTATION DATE: 03/20/19940 CAPTION WRITER: AVERY 03/20/19940 RPT#: [id number] DC DATE: STATUS: ADM IN [facility] [address] [place] [address] END OF REPORT
--- NOTE | 2019-03-20 11:56 | NUR ---
PATIENT REFUSED AND IS GOING HOME HOSPICE.
--- NOTE | 2019-03-20 12:17 | NUR ---
CALLED THE AMBULANCE FOR TRANSPORTATION TO HOME
--- NOTE | 2019-03-20 16:09 | MORECARE ---
CASE MANAGEMENT DISCHARGE SUMMARY PATIENT: MARK VERONICA UNIT: [id number] ADM DATE: 03/19/19 AGE: 69 : 50 SEX: F ROOM/BED: D.1208 AUTHOR: CLARITZA LOMAX PHYSICIAN: REFERRING PHYSICIAN: JUAN MANUEL CUELLAR MD DATE OF SERVICE: 03/20/19 Discharge Plan Patient Name: MARK VERONICA Facility: [facility]:[place] : 1950 Planned Disposition: Home with Hospice Anticipated Discharge Date: 03/20/19 Discharge Date: 03/20/2019 Expected LOS: 1 Initial Reviewer: [email or web address] Initial Review Date: 03/20/2019 Generated: 03/20/19 5:09 pm Comments DCP- Discharge Planning Updated by [email or web address]: Phylicia Lynn on 03/20/19 8:[address] Patient Name: MARK VERONICA Admission Status: Elective Accout number: [id number] Admission Date: 03-19-2019 : 1950 Admission Diagnosis: Attending: JUAN MANUEL CUELLAR Current LOS: 1 Anticipated DC Date: 03-20-2019 Planned Disposition: Home with Hospice Primary Insurance: MEDICARE A & B Discharge Planning Comments: CM received order for home hospice. CM informed by nurse, Marla, that patient family wants to use [facility]. CM called [facility] and spoke with Sammie about referral. Faxed records as requested. Awaiting eval and determination. CM informed Gutiérrez on status of referral. CM will continue to follow and assist as needed with discharge planning. Surgical Corsetier: Phylicia Lynn Coverage Notice Reviewer: [id number] - Phylicia Lynn Notice Issued Date-Time: 03/20/2019 11:07 Notice Type: Patient Choice Letter Notice Delivered To: Family Member Relationship to Patient: Daughter Welder Pipe Making Name: Clarita Sellers Delivery Method: HAND - Hand Delivered Lotus Days: Prior Verbal Notification: Recipient Understood Notice: Yes Recipient Signature: Yes Med Rec Note Co-signed by Attending: Coverage Notice Comment: Last DP export: 03/20/19 8:42 a Patient Name: MARK VERONICA Page 66633 at 1609 All edits/amendments must be made on the electronic document DICTATION DATE: 03/20/191608 BAIL BONDING AGENT: AVERY 03/20/191608 RPT#: [id number] DC DATE:03/20/19 STATUS: DIS IN [facility] [address] [place] [address] END OF REPORT
[2019-03-21 12:11] LABS: CEA 8.4 ng/mL (0.0-4.7)
== END 2019-03-20 12:52 | disposition home health service (06) ==
LOC: D.M3 16:27 → OBSVTIME 21:00 → D.M3 03-20 12:52
PROVIDERS: Family Medicine; Internal Medicine Gastroenterology; ADMIT Internal Medicine Nephrology; ATTEND Internal Medicine Nephrology
DX: K83.09 Other cholangitis (principal); C25.9 Malignant neoplasm of pancreas, unspecified; G93.41 Metabolic encephalopathy; K83.1 Obstruction of bile duct; D50.9 Iron deficiency anemia, unspecified; N17.9 Acute kidney failure, unspecified; E87.1 Hypo-osmolality and hyponatremia; E87.6 Hypokalemia; I10 Essential (primary) hypertension; E78.5 Hyperlipidemia, unspecified; E11.9 Type 2 diabetes mellitus without complications; J44.9 Chronic obstructive pulmonary disease, unspecified; G47.33 Obstructive sleep apnea (adult) (pediatric); I25.10 Atherosclerotic heart disease of native coronary artery without angina pectoris; F32.9 Major depressive disorder, single episode, unspecified; F17.213 Nicotine dependence, cigarettes, with withdrawal; R63.4 Abnormal weight loss